=== PATIENT | female | born 1990 | race Caucasian/White ===

== ENCOUNTER → 2022-03-14 13:19 | Outpatient (RCR) | payer OTHER, SELFPAY ==
[2020-10-18 12:34] LABS: SARS-COV-2 PCR UMBRL NEGATIVE
== END | disposition home or self-care (01) ==
LOC: HO.EMPCOV 10-17 12:09
PROVIDERS: Visit Provider Internal Medicine
DX: Z20.828 Contact with and (suspected) exposure to other viral communicable diseases (principal)
CPT/HCPCS: 36415; U0003